=== PATIENT | male | born 1950 | race Caucasian/White ===

== ENCOUNTER 2021-10-10 13:54 | Inpatient (IN) | payer OTHER ==
[2021-10-10] VITALS (11 sets, daily range): BP systolic 90–132; BP diastolic 55–80
[~2021-10-10] VITALS: Ht 172.7 cm; Wt 83.9 kg
[~2021-10-10 13:54] MED LIST: FENTANYL CITRATE PF 50 MCG/1 ML 2ML VIAL ONE; HEPARIN 10,000 UNIT/10ML (1,000 UNIT/ML) VIAL ONE; IOHEXOL 350 MG/ML 100ML INFUS..BTL IV ONE; IOHEXOL-350 50ML VIAL IV ONE; LIDOCAINE HCL 400MG/20ML VIAL ONE; MIDAZOLAM HCL 1 MG/ML 2ML VIAL ONE; NICARDIPINE 25MG INJ IV ONE; NITROGLYCERIN 50MG VIAL ONE; SODIUM BICARB 50MEQ 50ML VIAL 50 ML ONE
[2021-10-10] MEDS ORDERED: CARV6.25 PO (14:17)
[2021-10-10] MEDS ORDERED: CLOP75TA14 PO (14:17)
[2021-10-10] MEDS ORDERED: [UNRECOGNIZED DRUG - CODE] IV (14:17)
[2021-10-10] MEDS ORDERED: POLY17PO4 PO (14:17)
[2021-10-10] MEDS ORDERED: PHEN-719 PO (14:17)
[2021-10-10] MEDS ORDERED: MORP1VIA7 IJ ×2 (14:17)
[2021-10-10] MEDS ORDERED: SACU1TAB PO (14:17)
[2021-10-10] MEDS ORDERED: FURO20TA4 PO (14:17)
[2021-10-10] MEDS ORDERED: NITR0.4T50 SL (14:17)
[2021-10-10] MEDS ORDERED: ENOX80DI8 SQ (14:17)
[2021-10-10] MEDS ORDERED: ATOR40TA69 PO (14:17)
[2021-10-10] MEDS ORDERED: AEC81 PO (14:17)
[2021-10-10] MEDS ORDERED: SENN8.6T32 PO (14:17)
[2021-10-10] MEDS ORDERED: POTA10CA44 PO (14:17)
[2021-10-10] MEDS ORDERED: 0.9%NACL 1000ML 1,000 ML IV ONE (14:23)
[2021-10-10 14:39] LABS: INR 1.02 (0.85-1.15); PROTHROMBIN TIME 11.1 SEC (9.6-11.6)
[2021-10-10] MEDS ORDERED: POLYETHYLENE GLYCOL 3350 17 GM POWD.PACK PO PRN (17:00)
[2021-10-10] MEDS ORDERED: ACETAMINOPHEN 325 MG TAB PO PRN (17:00)
[2021-10-10] MEDS ORDERED: NITROGLYCERIN 0.4 MG SL TAB SL SCH (17:00)
[2021-10-10] MEDS ORDERED: 0.9%NACL 1000ML 1,000 ML IV SCH (17:00)
[2021-10-10] MEDS ORDERED: PERFLUTREN PROTEIN-A MICROSPHR 0.22 MG/ML VIAL IV SCH (17:00)
[2021-10-10] MEDS ORDERED: MORPHINE 2 MG SYG IV PRN ×2 (17:00)
[2021-10-10] MEDS ORDERED: IOHEXOL-350 75 ML VIAL IV ONE (20:57)
[2021-10-10] MEDS: NITROGLYCERIN 1GM OINT 1 INCH/1GM TD SCH (21:00)
[2021-10-10] MEDS: CARVEDILOL 6.25 MG TABLET PO SCH (21:00)
[2021-10-10] MEDS ORDERED: ATORVASTATIN 40 MG TABLET PO SCH (21:00)
[2021-10-10] MEDS: FUROSEMIDE 20 MG TABLET PO SCH (21:51)
[2021-10-11 03:45] LABS: BASOPHILS % (AUTO) 0.5 % (0.0-5.0); EOSINOPHILS % (AUTO) 1.2 % (0.0-8.0); HEMATOCRIT 41.2 % (42-54); LYMPHOCYTES % (AUTO) 13.2 % (21.0-51.0); MEAN CORPUSCULAR HEMOGLOBIN 29.5 pg (27.0-33.0); MONOCYTES % (AUTO) 8.3 % (3.0-13.0); NEUTROPHILS % (AUTO) 76.1 % (40.0-77.0); PLATELET COUNT (AUTO) 209 K/uL (130-400); RED BLOOD CELL COUNT(AUTO) 4.48 MIL/uL (4.50-6.20); RED CELL DISTRIBUTION WIDTH 13.3 % (11.0-15.5); WHITE BLOOD COUNT (AUTO) 7.6 K/uL (4.8-10.8)
[2021-10-11 03:53] LABS: HEMOGLOBIN A1C 5.9 % (4.0-6.0)
[2021-10-11 03:56] LABS: INR 1.01 (0.85-1.15)
[2021-10-11 03:57] LABS: PARTIAL THROMBOPLASTIN TIME 28.5 SEC (26.3-35.5)
[2021-10-11 03:59] LABS: ALBUMIN 3.1 g/dL (3.5-5.0); BILIRUBIN,TOTAL 0.3 mg/dL (0.2-1.0); POTASSIUM 4.4 mmol/L (3.5-5.1); TOTAL PROTEIN, SERUM 6.1 g/dL (6.0-8.3)
[2021-10-11] MEDS ORDERED: HEPARIN 25,000 UNITS/250ML D5W 250 ML IV SCH (04:00)
[2021-10-11 04:01] VITALS: BP 108/62
[2021-10-11] MEDS ORDERED: EPINEPHRINE PF 1MG AMP 10 MG in 0.9% NACL 250ML 240 ML IV PRN (07:00)
[2021-10-11] MEDS ORDERED: NOREPINEPHRINE BITARTRATE 8 MG in DEXTROSE 5%-WATER 250 ML IV PRN (07:00)
[2021-10-11] MEDS ORDERED: AMINOCAPROIC ACID 5,000MG VIAL 15,000 MG in 0.9% NACL 500ML IV.SOLN 420 ML IV PRN (07:00)
[2021-10-11] MEDS: CARVEDILOL 6.25 MG TABLET PO SCH ×2 (07:36→09:00)
[2021-10-11] MEDS: SACUBITRIL/VALSARTAN 1 EACH TABLET PO SCH ×3 (07:37→11:34)
[2021-10-11] MEDS: ASPIRIN 81 MG EC TAB PO SCH ×3 (07:37→11:35)
[2021-10-11] MEDS: NITROGLYCERIN 1GM OINT 1 INCH/1GM TD SCH (07:37)
[2021-10-11] MEDS: FUROSEMIDE 20 MG TABLET PO SCH ×2 (07:37→09:00)
[2021-10-11 08:08] VITALS: BP 94/61
[2021-10-11] MEDS ORDERED: KCL 20 MEQ ERTAB PO SCH (09:00)
[2021-10-11] MEDS ORDERED: CLOPIDOGREL 300MG TAB PO SCH (11:00)
[2021-10-11] MEDS ORDERED: FUROSEMIDE 20 MG TABLET PO SCH (11:00)
[2021-10-11] MEDS ORDERED: METOPROLOL SUCCINATE 50 MG TAB.SR.24H PO SCH ×2 (11:00→11:15)
[2021-10-11 11:52] VITALS: BP 107/68
[2021-10-11] MEDS ORDERED: CEFAZOLIN SODIUM 1 GM VIAL IVP PRN (14:00)
[2021-10-11 15:59] VITALS: BP 117/78
[2021-10-11] MEDS ORDERED: METO-408 PO (17:28)
[2021-10-11] MEDS ORDERED: ATOR40TA71 PO (17:28)
[2021-10-11] MEDS ORDERED: POTA-187 PO (17:28)
[2021-10-11] MEDS ORDERED: SACU1TAB PO (17:28)
[2021-10-11] MEDS ORDERED: FAMOTIDINE 20MG VIAL IV SCH (21:00)
[2021-10-12] MEDS ORDERED: CLOPIDOGREL 75MG TAB PO SCH (09:00)
[2021-10-12] MEDS ORDERED: POTASSIUM CHLORIDE 10MEQ SR TAB PO SCH (09:00)
== END 2021-10-11 18:20 | disposition home or self-care (01) | DRG 282 ==
LOC: DAH 13:54 → DAHIP 13:56 → DAH 13:56 → OBSVTOIN 13:56 → 2DH 17:20
PROVIDERS: ADMIT Hospitalist; ATTEND Hospitalist
PROC: 4A023N7 Measurement of Cardiac Sampling and Pressure, Left Heart, Percutaneous Approach (ICD-10-PCS; principal; 2021-10-10)
PROC: B2111ZZ Fluoroscopy of Multiple Coronary Arteries using Low Osmolar Contrast (ICD-10-PCS; 2021-10-10)
PROC: B2151ZZ Fluoroscopy of Left Heart using Low Osmolar Contrast (ICD-10-PCS; 2021-10-10)
DX: I21.4 Non-ST elevation (NSTEMI) myocardial infarction (principal); I50.9 Heart failure, unspecified; I11.0 Hypertensive heart disease with heart failure; E78.5 Hyperlipidemia, unspecified; I25.10 Atherosclerotic heart disease of native coronary artery without angina pectoris; Z20.822 Contact with and (suspected) exposure to COVID-19; Z95.5 Presence of coronary angioplasty implant and graft; Z85.118 Personal history of other malignant neoplasm of bronchus and lung; Z85.46 Personal history of malignant neoplasm of prostate; Z87.891 Personal history of nicotine dependence; Z82.3 Family history of stroke; Z79.2 Long term (current) use of antibiotics; Z79.82 Long term (current) use of aspirin; Z90.2 Acquired absence of lung [part of]
CPT/HCPCS: 36415; 71270; 80053; 80061; 83036; 83735; 83880; 85025; 85610; 85730; 86850; 86900; 86901; 86923; 87635; 93005; 93458; 93880; 94010; 99156; 99157; A4606; C1769; C1887; C1894; G0378; J1644; J2250; J3010; J3490; J7030; Q9967